=== PATIENT | male | born 1960 | race Caucasian/White ===

== ENCOUNTER 2017-11-17 20:07 | Emergency (ER) | payer OTHER, MEDICAID ==
[~2017-11-17] VITALS: Ht 165.1 cm; Wt 63.5 kg
[2017-11-17 20:10] VITALS: BP 121/70
--- NOTE | 2017-11-17 20:15 | NUR ---
TO LOBBY VIA W/C, A/W BED, LUIS MIGUEL LION NOTED
--- NOTE | 2017-11-17 20:30 | NUR ---
TO ER BED 1
--- NOTE | 2017-11-17 20:35 | NUR ---
57/M BIB CAREGIVER [facility] LEG SWELL[facility] X 1 DAY. PER CAREGIVER, LEG WERE PUPRPLE AT HOME. ON ASSESSMENT, LEG IS PINK AND DRY, +1 PITTING EDEMA TO BLE, +PMSC. DENIES ANY PAIN TO LEG. NO ACUTE RESPIRATORY DISTRESS. PMH: CEREBRAL PALSY, HTN, HYPOTHYROIDISM
[2017-11-17 23:29] LABS: EOSINOPHILS # (AUTO) 0.2 K/uL (0-0.4); EOSINOPHILS % (AUTO) 6.3 % (0.0-4.0); HEMATOCRIT 32.8 % (36-52); HEMOGLOBIN 11.7 g/dL (12.0-18.0); LYMPHOCYTES # (AUTO) 1.5 K/uL (2.0-11.5); LYMPHOCYTES % (AUTO) 41.4 % (20.5-51.1); MEAN CORPUSCULAR HEMOGLOBIN 34 pg (27-31); MEAN CORPUSCULAR HGB CONC 36 g/dL (33-37); MEAN CORPUSCULAR VOLUME 93.9 fL (80-94); MONOCYTES # (AUTO) 0.3 K/uL (0.8-1.0); MONOCYTES % (AUTO) 8.7 % (1.7-9.3); NEUTROPHILS # (AUTO) 1.6 K/uL (1.8-7.7); NEUTROPHILS % (AUTO) 42.6 % (42.2-75.2); PLATELET COUNT (AUTO) 242 K/uL (140-450); RED BLOOD CELL COUNT(AUTO) 3.49 MIL/uL (4.20-6.10); RED CELL DISTRIBUTION WIDTH 13.3 % (11.6-13.7); WHITE BLOOD COUNT (AUTO) 3.7 K/uL (4.8-10.8)
[2017-11-17 23:50] LABS: ANION GAP 8.8 (8-16); CREATININE 0.7 mg/dL (0.7-1.3); POTASSIUM 3.8 mmol/L (3.5-5.1)
[2017-11-17 23:56] LABS: ALBUMIN 3.1 g/dL (3.4-5.0); TOTAL BILIRUBIN 0.3 mg/dL (0.0-1.0)
[2017-11-17] MEDS ORDERED: MULT-405 PO (23:56)
[2017-11-17] MEDS ORDERED: BENA20TA PO (23:56)
[2017-11-17] MEDS ORDERED: INSU100S22 SUBQ (23:56)
[2017-11-17] MEDS ORDERED: MAGN400S60 PO (23:56)
[2017-11-17] MEDS ORDERED: BISA10SU46 RC (23:56)
[2017-11-17] MEDS ORDERED: [UNRECOGNIZED DRUG - CODE] PO (23:56)
[2017-11-17] MEDS ORDERED: [UNRECOGNIZED DRUG - CODE] PO (23:56)
[2017-11-17] MEDS ORDERED: HUM SUBQ (23:56)
[2017-11-17] MEDS ORDERED: HYDR200T5 PO (23:56)
[2017-11-17] MEDS ORDERED: DOCU-299 PO (23:56)
[2017-11-17] MEDS ORDERED: FLEPED RC (23:56)
[2017-11-17] MEDS ORDERED: FINA5TAB1 PO (23:56)
[2017-11-17] MEDS ORDERED: SYN.1 PO (23:56)
[2017-11-17] MEDS ORDERED: GLU1I (23:56)
[2017-11-17] MEDS ORDERED: LEVO0.083 PO (23:56)
[2017-11-17] MEDS ORDERED: TAMS0.4C96 PO (23:56)
[2017-11-17] MEDS ORDERED: ALEN70TA52 PO (23:56)
[2017-11-17] MEDS ORDERED: [UNRECOGNIZED DRUG - CODE] MC (23:56)
[2017-11-17] MEDS ORDERED: ACET-2619 PO (23:56)
[2017-11-17] MEDS ORDERED: [UNRECOGNIZED DRUG - CODE] PO (23:56)
[2017-11-18 00:07] LABS: APPEARANCE,URINE CLEAR (CLEAR); BILIRUBIN,URINE NEGATIVE (NEGATIVE); BLOOD, URINE NEGATIVE (NEGATIVE); COLOR,URINE YELLOW (YELLOW); LEUKOCYTE ESTERASE ,URINE NEGATIVE (NEGATIVE); NITRITE, URINE NEGATIVE (NEGATIVE); UGLUCOSE NEGATIVE (NEGATIVE)
--- NOTE | 2017-11-18 01:09 | NUR ---
Patient discharged with v/s stable. Written and verbal after care instructions given and explained. Patient verbalized understanding. Wheel Chair Assisted with by caregiver. All questions addressed prior to discharge. Advised to follow up with PMD. IV removed, catheter intact and site benign. Applied folded 4x4 gauze and tape to stop bleeding.
[2017-11-18 01:16] VITALS: BP 116/70
== END 2017-11-18 01:09 | disposition home or self-care (01) ==
LOC: MED 20:07
DX: G80.9 Cerebral palsy, unspecified (principal); M79.605 Pain in left leg; M79.604 Pain in right leg; I10 Essential (primary) hypertension; E03.9 Hypothyroidism, unspecified; Z79.4 Long term (current) use of insulin; Z79.899 Other long term (current) drug therapy
CPT/HCPCS: 36415; 71045; 80053; 81003; 82948; 83880; 85025; 93970; 99285; Q0092; 99284

== ENCOUNTER 2018-07-05 13:07 | Inpatient (IN) | payer OTHER, MEDICAID ==
[~2018-07-05] VITALS: Ht 167.6 cm; Wt 87.1 kg
[2018-07-05 13:07] VITALS: BP 122/91
[~2018-07-05 13:07] MED LIST: ACET-2619 PO; ALEN70TA9 PO; BENA20TA PO; BISA10SU46 RC; DOCU-299 PO; FINA5TAB1 PO; FLEPED RC; GLU1I; HUM SUBQ; HYDR200T5 PO; INSU100S22 SUBQ; LEVO0.083 PO; MAGN400S60 PO; MULT-405 PO; SYN.1 PO; TAMS0.4C96 PO; [UNRECOGNIZED DRUG - CODE] MC; [UNRECOGNIZED DRUG - CODE] PO; [UNRECOGNIZED DRUG - CODE] PO; [UNRECOGNIZED DRUG - CODE] PO
--- NOTE | 2018-07-05 13:07 | NUR ---
Patient BIBA ACLS, transferred to bed 5. RN evaluating patient at bedside.
--- NOTE | 2018-07-05 13:40 | NUR ---
pt c/o generalized weakness worsening over 3 days. Pt is wheelchair bound at baseline due to cerebral palsy. Was recently put on lasix for increased fluid retention. a/ox4 . muscle strength equal bilaterally upper and lower extremites. lungs congested at bases bilat, 93% on RA. +wet cough noted. hx---CP, DM, HTN, hypothyroidism
[2018-07-05] MEDS ORDERED: NACL 0.9% 1,000 ML IV SCH (14:04)
[2018-07-05] MEDS ORDERED: LEVOFLOXACIN 500 MG/D5W PREMIX 100 ML IV ONE (14:05)
[2018-07-05] MEDS ORDERED: ALBUTEROL SULFATE/IPRATROPIU 3 ML SOL IH ONE (14:05)
[2018-07-05] MEDS ORDERED: MAG SULF 2000 MG/WATER PREMIX 50 ML IV ONE (14:05)
[2018-07-05] MEDS ORDERED: methylPREDNISolone SS 125 MG/2 ML VIAL IVP ONE (14:05)
--- NOTE | 2018-07-05 14:17 | NUR ---
XRAY AT BEDSIDE
[2018-07-05 14:49] LABS: BASOPHILS % (AUTO) 0.2 % (0.0-2.0); EOSINOPHILS # (AUTO) 0.1 K/uL (0-0.4); EOSINOPHILS % (AUTO) 1.8 % (0.0-4.0); HEMATOCRIT 26.4 % (36-52); HEMOGLOBIN 9.1 g/dL (12.0-18.0); LYMPHOCYTES # (AUTO) 0.6 K/uL (2.0-11.5); LYMPHOCYTES % (AUTO) 11.3 % (20.5-51.1); MEAN CORPUSCULAR HEMOGLOBIN 34 pg (27-31); MEAN CORPUSCULAR HGB CONC 34 g/dL (33-37); MEAN CORPUSCULAR VOLUME 98.1 fL (80-94); MONOCYTES # (AUTO) 0.3 K/uL (0.8-1.0); NEUTROPHILS # (AUTO) 3.9 K/uL (1.8-7.7); NEUTROPHILS % (AUTO) 79.7 % (42.2-75.2); PLATELET COUNT (AUTO) 352 K/uL (140-450); RED BLOOD CELL COUNT(AUTO) 2.69 MIL/uL (4.20-6.10); RED CELL DISTRIBUTION WIDTH 13.5 % (11.6-13.7); WHITE BLOOD COUNT (AUTO) 4.9 K/uL (4.8-10.8)
--- NOTE | 2018-07-05 14:51 | NUR ---
ADMINISTERED HHN THERAPY AND RESPIRATORY DRUG ORDERED
[2018-07-05 15:14] LABS: ANION GAP 11.8 (8-16); CARBON DIOXIDE 29.1 mmol/L (21-32); CREATININE 1.1 mg/dL (0.7-1.3); POTASSIUM 3.9 mmol/L (3.5-5.1)
[2018-07-05 15:19] LABS: PROTHROMBIN TIME 9.2 secs (10.8-13.4)
[2018-07-05 15:28] LABS: ALBUMIN 2.3 g/dL (3.4-5.0); TOTAL BILIRUBIN 0.3 mg/dL (0.0-1.0)
[2018-07-05] MEDS ORDERED: ATOR10TA51 PO (17:48)
[2018-07-05] MEDS ORDERED: ASPI-1718 PO (17:48)
[2018-07-05] MEDS ORDERED: [UNRECOGNIZED DRUG - CODE] PO (17:48)
[2018-07-05] MEDS ORDERED: [UNRECOGNIZED DRUG - CODE] PO (17:48)
[2018-07-05 18:21] LABS: APPEARANCE,URINE CLEAR (CLEAR); BILIRUBIN,URINE NEGATIVE (NEGATIVE); BLOOD, URINE NEGATIVE (NEGATIVE); COLOR,URINE YELLOW (YELLOW); LEUKOCYTE ESTERASE ,URINE NEGATIVE (NEGATIVE); NITRITE, URINE NEGATIVE (NEGATIVE); PH,URINE 6.5 (5.0-9.0); UGLUCOSE NEGATIVE (NEGATIVE)
--- NOTE | 2018-07-05 19:20 | NUR ---
Katia amado in [facility] - 07/05/18 at 1921 by SERA REPORT RECKEZIA FROM SAMANTA RN
--- NOTE | 2018-07-05 19:21 | NUR ---
REPORT REC'D FROM ESMS RN
[2018-07-05] MEDS ORDERED: ALBUTEROL 0.083% 2.5 MG/3 ML NEBU INH PRN (19:25)
[2018-07-05] MEDS ORDERED: ACETAMINOPHEN 325 MG TAB PO PRN (19:25)
[2018-07-05] MEDS ORDERED: DEXTROSE 50% 50 ML SYR IVP PRN (19:25)
[2018-07-05] MEDS ORDERED: ONDANSETRON 4 MG/2 ML VIAL IVP PRN (19:25)
[2018-07-05 20:40] VITALS: BP 113/69
--- NOTE | 2018-07-05 20:40 | NUR ---
RECEIVED PT FROM ER NURSE. PT ON 2LPM O2 VIA NC. NO SOB OR ANY RESPIRATORY DISTRESS NOTED WITH NC. SKIN INTACT, WARM AND DRY. IV SITE ON LEFT HAND 20G. SL. DX PNA. ORIENT ROOM TO PT. BED IN LOW POSITION. CALL LIGHT WITHIN REACH. WILL CONTINUE TO MONITOR.
--- NOTE | 2018-07-05 20:45 | NUR ---
Patient will be admitted to care of DR. LOPEZ. Admited to [facility]. Will go to room 121 B Belongings list completed. Report to JACQUELINE BRADSHAW
--- NOTE | 2018-07-05 21:30 | NUR ---
INSERT NOEL CATHETER. URINE DRAIN WELL. PT TOLERATED WELL. WILL CONTINUE TO MONITOR.
[2018-07-05] MEDS: HYDROXYCHLOROQUINE 200 MG TAB PO SCH (21:45)
[2018-07-05] MEDS: PIPERACILLIN/TAZOBACTAM 2.25 GM in DEXTROSE 5% 50 ML IV SCH (21:45)
[2018-07-05] MEDS ORDERED: PIPERACILLIN/TAZOBACTAM 2.25 GM VIAL IV ONE (21:46)
[2018-07-05] MEDS: BLOOD GLUCOSE MONITORING 1 DEV DEV FS SCH (21:50)
[2018-07-05] MEDS: INSULIN LISPRO SLIDING SCALE 100 UNITS/ML VIAL SUBQ PRN (22:24)
[2018-07-06] VITALS: BP 127/81
--- NOTE | 2018-07-06 00:02 | NUR ---
VS CHECKED. WITHIN NORMAL RANGE. PT IN STABLE CONDITION. WILL CONTINUE TO MONITOR.
--- NOTE | 2018-07-06 02:10 | NUR ---
PT SLEEPING. NO S/S ANY DISCOMFORT. CALL LIGHT WITHIN REACH.
[2018-07-06] MEDS: ALBUTEROL 0.083% 2.5 MG/3 ML NEBU INH SCH ×4 (02:15→19:49)
[2018-07-06 04:00] VITALS: BP 97/57
--- NOTE | 2018-07-06 04:35 | NUR ---
PT SLEEPING COMFORTABLY. NO S/S SOB OR ANY KIND RESPIRATORY DISTRESS NOTED. WILL CONTINUE TO MONITOR.
[2018-07-06] MEDS: BLOOD GLUCOSE MONITORING 1 DEV DEV FS SCH ×4 (05:41→21:10)
[2018-07-06] MEDS ORDERED: PIPERACILLIN/TAZOBACTAM 2.25 GM VIAL IV ONE (05:44)
[2018-07-06] MEDS: INSULIN LISPRO SLIDING SCALE 100 UNITS/ML VIAL SUBQ PRN ×4 (05:45→21:25)
--- NOTE | 2018-07-06 05:45 | NUR ---
GIVEN ZOSIN, BS CHECKED, 254. INSULIN COVERAGE NEEDED. GIVEN INSULIN. PT TOLERATED WELL.
[2018-07-06] MEDS: PIPERACILLIN/TAZOBACTAM 2.25 GM in DEXTROSE 5% 50 ML IV SCH ×3 (05:49→21:11)
[2018-07-06] MEDS: LEVOTHYROXINE 0.088 MG TAB PO SCH (06:30)
--- NOTE | 2018-07-06 06:55 | NUR ---
SYNTHROID IS NOT AVAILABLE IN FLOOR. NOT GIVEN.
--- NOTE | 2018-07-06 07:16 | NUR ---
ENDORSED PT TO DAY SHIFT NURSE. PT IN STABLE CONDITION.
--- NOTE | 2018-07-06 07:17 | NUR ---
RECEIVED BEDSIDE REPORT FROM MANAGER BUSINESS NURSE. PATIENT ON TELE MONITOR AND STANDARD PRECAUTIONS IN PLACE. PATIENT AAOX4 AND ON 2 L O2 NC, NO DISTRESS NOTED. PATIENT BEDREST AND SKIN INTACT, +3 PITTING EDEMA ON B/L FEET. NOEL CATHETER IN PLACE, INSERTED 07/06/18, SECURE AND IN PLACE. FALL RISK PROTOCOL IN PLACE. BED IN LOW POSITION, CALL LIGHT WITHIN REACH, SIDE RAILS X2 UP Addendum: 07/06/18 at 0904 by Nydia Erazo RN NOEL CATHETER INSERTED 07/05/18
[2018-07-06 08:00] VITALS: BP 112/64
--- NOTE | 2018-07-06 08:37 | NUR ---
PATIENT HAS BEEN SCREENED AND CATEGORIZED MODERATE NUTRITION RISK. PATIENT WILL BE SEEN WITHIN 3-5 DAYS OF ADMISSION. 07/08/18-07/10/[address]
[2018-07-06] MEDS: TAMSULOSIN 0.4 MG CAP PO SCH (08:55)
[2018-07-06] MEDS: ATORVASTATIN 20 MG TAB PO SCH (08:56)
[2018-07-06] MEDS: ASPIRIN 81 MG TAB.CHEW PO SCH (08:56)
[2018-07-06] MEDS: BENAZEPRIL 10 MG TAB PO SCH (08:57)
[2018-07-06] MEDS: HYDROXYCHLOROQUINE 200 MG TAB PO SCH ×2 (08:58→21:11)
[2018-07-06] MEDS: FINASTERIDE 5 MG TAB PO SCH (08:58)
[2018-07-06] MEDS ORDERED: ENOXAPARIN 40 MG/0.4 ML SYR SUBQ SCH (09:00)
--- NOTE | 2018-07-06 09:01 | NUR ---
ADMINISTERED SCHEDULED MEDS. PATIENT TOLERATED WELL
[2018-07-06 09:15] LABS: BASOPHILS % (AUTO) 0.2 % (0.0-2.0); HEMATOCRIT 23.9 % (36-52); HEMOGLOBIN 8.4 g/dL (12.0-18.0); LYMPHOCYTES # (AUTO) 0.7 K/uL (2.0-11.5); LYMPHOCYTES % (AUTO) 11.2 % (20.5-51.1); MEAN CORPUSCULAR HEMOGLOBIN 34 pg (27-31); MEAN CORPUSCULAR HGB CONC 35 g/dL (33-37); MEAN CORPUSCULAR VOLUME 98.1 fL (80-94); MONOCYTES # (AUTO) 0.3 K/uL (0.8-1.0); MONOCYTES % (AUTO) 5.2 % (1.7-9.3); NEUTROPHILS # (AUTO) 5.5 K/uL (1.8-7.7); NEUTROPHILS % (AUTO) 83.4 % (42.2-75.2); PLATELET COUNT (AUTO) 392 K/uL (140-450); RED BLOOD CELL COUNT(AUTO) 2.43 MIL/uL (4.20-6.10); RED CELL DISTRIBUTION WIDTH 13.5 % (11.6-13.7); WHITE BLOOD COUNT (AUTO) 6.6 K/uL (4.8-10.8)
[2018-07-06] MEDS: INSULIN LANTUS 100 UNITS/ML 10 ML VIAL SUBQ SCH (09:20)
[2018-07-06 09:42] LABS: ALBUMIN 1.8 g/dL (3.4-5.0); ANION GAP 15.5 (8-16); CARBON DIOXIDE 22.2 mmol/L (21-32); CREATININE 1.1 mg/dL (0.7-1.3); POTASSIUM 3.7 mmol/L (3.5-5.1); TOTAL BILIRUBIN 0.2 mg/dL (0.0-1.0)
--- NOTE | 2018-07-06 10:25 | NUR ---
DR. MARSH AT BEDSIDE SPEAKING TO PATIENT
--- NOTE | 2018-07-06 11:49 | NUR ---
ADMINISTERED INSULIN PER SLIDING SCALE. PATIENT TOLERATED WELL
[2018-07-06 12:00] VITALS: BP 106/62
--- NOTE | 2018-07-06 13:58 | NUR ---
FAMILY AT BEDSIDE, ON 2 L O2 NC, NO DISTRESS NOTED
[2018-07-06 16:00] VITALS: BP 107/60
--- NOTE | 2018-07-06 16:30 | NUR ---
PATIENT WATCHING TV, ON 2L O2 NC, NO DISTRESS NOTED
[2018-07-06] MEDS: FUROSEMIDE 40 MG/4 ML VIAL IVP SCH (16:36)
--- NOTE | 2018-07-06 19:20 | NUR ---
BEDSIDE REPORT GIVEN TO AUGUSTINE NELSON. PATIENT ENDORSED IN STABLE CONDITION
--- NOTE | 2018-07-06 19:25 | NUR ---
RECEIVED BEDSIDE REPORT FROM DAY SHIFT RNMILAD. PATIENT IN STABLE CONDITION, NO SIGNS OF DISTRESS ON 2L O2 VIA NC, SITTING UP IN BED, SAFETY PRECAUTIONS IN PLACE.
[2018-07-06 20:00] VITALS: BP 103/55
--- NOTE | 2018-07-06 21:28 | NUR ---
ADMINISTERED SCHEDULED MEDICATIONS. PATIENT TOLERATED WELL. REPOSITIONED PATIENT FOR COMFORT. SAFETY PRECAUTIONS IN PLACE. WILL CONTINUE TO MONITOR.
--- NOTE | 2018-07-06 23:15 | NUR ---
PATIENT SLEEPING, NO SIGNS OF DISTRESS ON 2L O2 NC. SAFETY PRECAUTIONS IN PLACE.
[2018-07-07 00:27] VITALS: BP 112/62
--- NOTE | 2018-07-07 01:30 | NUR ---
PATIENT WOKE UP TO USE BEDPAN, CLEANED AND REPOSITIONED PATIENT FOR COMFORT, PATIENT WANTS TO GO BACK TO SLEEP.
[2018-07-07 04:00] VITALS: BP 108/53
--- NOTE | 2018-07-07 04:10 | NUR ---
REPOSITIONED PATIENT FOR COMFORT, VITALS STABLE, NO SIGNS OF DISTRESS ON2L O2 NC, SAFETY PRECAUTIONS IN PLACE.
[2018-07-07] MEDS: PIPERACILLIN/TAZOBACTAM 2.25 GM in DEXTROSE 5% 50 ML IV SCH (06:02)
[2018-07-07] MEDS: LEVOTHYROXINE 0.088 MG TAB PO SCH (06:25)
[2018-07-07] MEDS: BLOOD GLUCOSE MONITORING 1 DEV DEV FS SCH ×4 (06:31→20:47)
--- NOTE | 2018-07-07 07:10 | NUR ---
RECEIVED REPORT FROM NUT SORTER OPERATOR NURSE LESLIE FOR CONTINUITY OF CARE. PT IN STABLE CONDITION. RESPIRATIONS EVEN AND UNLABORED. IV INTACT AND PATENT. SAFETY MEASURES IN PLACE. BED IN LOW POSITION. BED ALARM ON. CALL LIGHT AT BEDSIDE. WILL CONTINUE TO MONITOR.
[2018-07-07 07:36] LABS: BASOPHILS % (AUTO) 0.2 % (0.0-2.0); EOSINOPHILS % (AUTO) 0.8 % (0.0-4.0); HEMATOCRIT 20.8 % (36-52); HEMOGLOBIN 7.5 g/dL (12.0-18.0); LYMPHOCYTES % (AUTO) 18.4 % (20.5-51.1); MEAN CORPUSCULAR HEMOGLOBIN 35 pg (27-31); MEAN CORPUSCULAR HGB CONC 36 g/dL (33-37); MEAN CORPUSCULAR VOLUME 97.2 fL (80-94); MONOCYTES # (AUTO) 0.4 K/uL (0.8-1.0); MONOCYTES % (AUTO) 6.8 % (1.7-9.3); NEUTROPHILS % (AUTO) 73.8 % (42.2-75.2); PLATELET COUNT (AUTO) 406 K/uL (140-450); RED BLOOD CELL COUNT(AUTO) 2.14 MIL/uL (4.20-6.10); RED CELL DISTRIBUTION WIDTH 13.6 % (11.6-13.7); WHITE BLOOD COUNT (AUTO) 5.4 K/uL (4.8-10.8)
[2018-07-07] MEDS: ALBUTEROL 0.083% 2.5 MG/3 ML NEBU INH SCH ×3 (07:49→19:22)
[2018-07-07 08:00] VITALS: BP 120/61
[2018-07-07 08:48] LABS: ALBUMIN 1.7 g/dL (3.4-5.0); ANION GAP 10.4 (8-16); CARBON DIOXIDE 27.9 mmol/L (21-32); CREATININE 1.3 mg/dL (0.7-1.3); POTASSIUM 3.3 mmol/L (3.5-5.1); TOTAL BILIRUBIN 0.2 mg/dL (0.0-1.0)
[2018-07-07] MEDS: FINASTERIDE 5 MG TAB PO SCH (09:48)
[2018-07-07] MEDS: ASPIRIN 81 MG TAB.CHEW PO SCH (09:48)
[2018-07-07] MEDS: POTASSIUM CHLORIDE 10 MEQ TABER PO SCH (09:48)
[2018-07-07] MEDS: ATORVASTATIN 20 MG TAB PO SCH (09:49)
[2018-07-07] MEDS: BENAZEPRIL 10 MG TAB PO SCH (09:49)
[2018-07-07] MEDS: HYDROXYCHLOROQUINE 200 MG TAB PO SCH ×2 (09:49→20:39)
[2018-07-07] MEDS: TAMSULOSIN 0.4 MG CAP PO SCH (09:49)
[2018-07-07] MEDS: FUROSEMIDE 40 MG/4 ML VIAL IVP SCH ×2 (09:58→16:38)
[2018-07-07] MEDS: INSULIN LANTUS 100 UNITS/ML 10 ML VIAL SUBQ SCH (09:59)
--- NOTE | 2018-07-07 10:01 | NUR ---
LOVENOX DISCONTINUED NOT GIVEN AT THIS TIME. PT IN STABLE CONDITION.
--- NOTE | 2018-07-07 10:02 | NUR ---
REPOSITIONED AND CHANGED AT THIS TIME. PT IN STABLE CONDITION. AAOX4. BED IN LOW POSITION. CALL LIGHT AT BEDSIDE. BED ALARM ON.
[2018-07-07 12:00] VITALS: BP 110/60
[2018-07-07] MEDS: INSULIN LISPRO SLIDING SCALE 100 UNITS/ML VIAL SUBQ PRN ×3 (12:30→20:47)
[2018-07-07] MEDS: PIPER/TAZO 2.25GM/D5W PREMIX 50 ML IV SCH ×2 (13:53→20:39)
--- NOTE | 2018-07-07 13:58 | NUR ---
ASSISTED WITH ORAL CARE AT THIS TIME. PT TOLERATED WELL. RESPIRATIONS EVEN AND UNLABORED. WILL CONTINUE TO MONITOR. BED IN LOW POSITION. CALL LIGHT AT BEDSIDE. BED ALARM ON.
--- NOTE | 2018-07-07 15:09 | NUR ---
PT LYING IN BED WITH FAMILY AT BEDSIDE. RESPIRATIONS EVEN AND UNLABORED. BED IN LOW POSITION. CALL LIGHT AT BEDSIDE. BED ALARM ON. WILL CONTINUE TO MONITOR.
[2018-07-07 16:00] VITALS: BP 103/55
--- NOTE | 2018-07-07 19:29 | NUR ---
GAVE REPORT TO BANK APPRAISER NURSE DIEGO FOR CONTINUITY OF CARE. PT IN STABLE CONDITION.
--- NOTE | 2018-07-07 19:30 | NUR ---
RECEIVED PT ON BED, AAOX4, HX OF CEREBRAL PALSY, ABLE TO MAKE NEEDS KNOWN, VITAL SIGNS STABLE, SAT-95% ON O2 2L NC, DENIES ANY PAIN, NO SOB NOTED, OCCASIONAL COUGH NOTED, WITH IRENE LOWER LEG PITTING EDEMA, SCROTAL EDEMA AND REDNESS NOTED, NEOL CATHETER IN PLACE WITH PALE YELLOW OUTPUT, PLAN OF CARE DISCUSSED, SAFETY MEASURES IN PLACE, CALL LIGHT WITHIN REACH.
[2018-07-07 20:00] VITALS: BP 110/69
--- NOTE | 2018-07-07 20:50 | NUR ---
BLOOD SUGAR CHECKED WITH 200 RESULT, COVERAGE GIVEN, ASSISTED WITH SNACK, TOLERATED WELL, DUE MEDS ADMINISTERED, REPOSITIONED BY TAX RECORD CLERK AND OFFLOAD PRESSURE AREAS, MONITORED CLOSELY.
--- NOTE | 2018-07-07 23:45 | NUR ---
PT SLEEPING, OPEN EYES TO TOUCH, VITAL SIGNS STABLE, DENIES ANY PAIN, NO SIGNS OF RESP DISTRESS, CONTINUE TO MONITOR CLOSELY.
[2018-07-08] VITALS: BP 115/64
[2018-07-08] MEDS: ALBUTEROL 0.083% 2.5 MG/3 ML NEBU INH SCH ×4 (01:11→19:09)
--- NOTE | 2018-07-08 03:47 | NUR ---
PT SLEEPING, EASILY AROUSABLE, VITAL SIGNS STABLE, DENIES PAIN, NO SOB NOTED, MONITORED CLOSELY.
[2018-07-08 04:00] VITALS: BP 113/65
[2018-07-08] MEDS: PIPER/TAZO 2.25GM/D5W PREMIX 50 ML IV SCH ×3 (04:24→20:03)
[2018-07-08] MEDS: LEVOTHYROXINE 0.088 MG TAB PO SCH (05:53)
--- NOTE | 2018-07-08 06:10 | NUR ---
BLOOD SUGAR CHECKED WITH 146 RESULT, NO COVERAGE NEEDED, DUE PO MEDICATION TAKEN, NO SOB NOTED, MONITORED CLOSELY.
[2018-07-08] MEDS: BLOOD GLUCOSE MONITORING 1 DEV DEV FS SCH ×4 (06:54→19:55)
--- NOTE | 2018-07-08 07:21 | NUR ---
PT AWAKE WATCHING TV, NO DISTRESS NOTED, REPORT GIVEN TO AUGUSTINE JUAN FOR CONTINUITY OF CARE.
--- NOTE | 2018-07-08 07:21 | NUR ---
RECEIVED REPORT FROM ELDER ASSISTANT NURSE DIEGO FOR CONTINUITY OF CARE. PT IN STABLE CONDITION. RESPIRATIONS EVEN AND UNLABORED. O2 2L VIA NC INTACT AND PATENT. IV INTACT AND PATENT. SAFETY MEASURES IN PLACE. BED IN LOW POSITION. BED ALARM ON. CALL LIGHT AT BEDSIDE. WILL CONTINUE TO MONITOR.
[2018-07-08 08:00] VITALS: BP 109/60
--- NOTE | 2018-07-08 09:05 | NUR ---
ASSISTED WITH REPOSITIONING AND CHANGING. PT TOLERATED WELL. BED IN LOW POSITION. BED ALARM ON. CALL LIGHT AT BEDSIDE. WILL CONTINUE TO MONITOR.
[2018-07-08] MEDS: FINASTERIDE 5 MG TAB PO SCH (09:20)
[2018-07-08] MEDS: POTASSIUM CHLORIDE 10 MEQ TABER PO SCH (09:20)
[2018-07-08] MEDS: ATORVASTATIN 20 MG TAB PO SCH (09:20)
[2018-07-08] MEDS: BENAZEPRIL 10 MG TAB PO SCH (09:20)
[2018-07-08] MEDS: FUROSEMIDE 40 MG/4 ML VIAL IVP SCH ×2 (09:20→17:25)
[2018-07-08] MEDS: TAMSULOSIN 0.4 MG CAP PO SCH (09:21)
[2018-07-08] MEDS: HYDROXYCHLOROQUINE 200 MG TAB PO SCH ×2 (09:21→20:04)
--- NOTE | 2018-07-08 10:05 | NUR ---
WENT IN TO TITRATE PT DOWN ON O2. PLACED PT ON ROOM AIR & PT BEGAN TO DESATURATE DOWN TO 86%. PLACED PT ON 1L O2, PT STILL SATING AT 88-89%. PLACE PT BACK ON 2L N.C. WILL CONTINUE TO MONITOR AND WILL ATTEMPT TO TITRATE 02 AGAIN AFTER NEXT TX
[2018-07-08] MEDS: INSULIN LANTUS 100 UNITS/ML 10 ML VIAL SUBQ SCH (10:21)
[2018-07-08 12:00] VITALS: BP 112/72
[2018-07-08] MEDS ORDERED: MAGNESIUM HYDROXIDE 2400 MG/30 ML UDC PO PRN (12:25)
--- NOTE | 2018-07-08 12:30 | NUR ---
VERBAL ORDER NASRIN FRANCISCO M.D. FOR SACRAL REDNESS.
[2018-07-08] MEDS ORDERED: MAGNESIUM HYDROXIDE 2400 MG/30 ML UDC PO SCH (13:00)
--- NOTE | 2018-07-08 13:10 | NUR ---
PT LYING IN BED WITH FAMILY (SISTER MARISA) AT BEDSIDE. PT IN STABLE CONDITION. WILL CONTINUE TO MONITOR. BED IN LOW POSITION. CALL LIGHT BY BEDSIDE.
[2018-07-08] MEDS: INSULIN LISPRO SLIDING SCALE 100 UNITS/ML VIAL SUBQ PRN ×3 (13:57→20:22)
[2018-07-08 16:00] VITALS: BP 116/62
[2018-07-08] MEDS ORDERED: HYDRAGUARD CREAM TP PRN (17:10)
--- NOTE | 2018-07-08 17:30 | NUR ---
PT NATIONAL BUSINESS DIRECTOR DIEUDONNE . DIEUDONNE HAS NEW PLACEMENT FOR PT WHEN DISCHARGED. WILL ENDORSE.
--- NOTE | 2018-07-08 17:31 | NUR ---
GAVE ORDERED DUE MEDICATIONS AT THIS TIME. PT TOLERATED WELL. BED IN LOW POSITION. BED ALARM ON. CALL LIGHT AT BEDSIDE. WILL CONTINUE TO MONITOR.
--- NOTE | 2018-07-08 19:13 | NUR ---
GAVE REPORT TO BRUSH MACHINE SETTER NURSE MILI FOR CONTINUITY OF CARE. PT IN STABLE CONDITION.
--- NOTE | 2018-07-08 19:15 | NUR ---
RECEIVED BEDSIDE REPORT FROM YESSICA BRADSHAW. PT IS AAO X4. BEDBOUND. ON ROOM AIR. RESPIRATIONS ARE EQUAL AND UNLABORED. IV ON L HAND 20G SL ON IV ANTIBIOTICS. SKIN INTACT PER NURSE HAS REDNESS ON SACRAL HYDRAGUARD ORDERED. PT IS COMING FROM [facility] 07/07. PLAN OF CARE DISCUSSED WITH PT. SAFETY MEASURES ARE IN PLACE. WILL CONTINUE TO MONITOR.
--- NOTE | 2018-07-08 20:03 | NUR ---
SCHEDULED MEDICATIONS WERE GIVEN. PT TOLERATED WELL. BLOOD GLUCOSE 191 2 UNITS GIVEN. ALL NEED MET AT THIS TIME. WILL CONTINUE TO MONITOR.
[2018-07-09] VITALS: BP 103/65
--- NOTE | 2018-07-09 00:35 | NUR ---
VITAL SIGNS ARE WITHIN NORMAL LIMITS. ASSISTED PATIENT WITH ORAL CARE. REPOSITION PT FOR COMFORT. WILL CONTINUE TO MONITOR.CALL LIGHT WITHIN REACH.
[2018-07-09] MEDS: ALBUTEROL 0.083% 2.5 MG/3 ML NEBU INH SCH ×4 (00:55→20:29)
--- NOTE | 2018-07-09 02:21 | NUR ---
PT IS SLEEPING. NO S/S OF DISTRESS. WILL CONTINUE TO MONITOR.
--- NOTE | 2018-07-09 05:19 | NUR ---
BLOOD GLUCOSE IS 31 PT IS VERBAL AND NON CLAMMY. DEXTROSE ADMINISTERED PER ORDERS AND ORANGE JUICE WITH SUGAR GIVEN WILL RECHECK BLOOD SUGAR.
[2018-07-09] MEDS: LEVOTHYROXINE 0.088 MG TAB PO SCH (05:34)
[2018-07-09] MEDS: PIPER/TAZO 2.25GM/D5W PREMIX 50 ML IV SCH ×2 (05:35→12:13)
[2018-07-09] MEDS: BLOOD GLUCOSE MONITORING 1 DEV DEV FS SCH ×4 (05:38→19:46)
--- NOTE | 2018-07-09 05:40 | NUR ---
RECHECKED BLOOD SUGAR IS 119. PT IN NO DISTRESS. ALL SAFETY MEASURES ARE IN PLACE. SNACK AT BEDSIDE. GAVE PATIENT ANOTHER ORANGE JUICE. CALL LIGHT WITHIN REACH. WILL CONTINUE TO MONITOR.
[2018-07-09 06:00] LABS: BASOPHILS % (AUTO) 0.6 % (0.0-2.0); EOSINOPHILS # (AUTO) 0.2 K/uL (0-0.4); EOSINOPHILS % (AUTO) 3.2 % (0.0-4.0); HEMATOCRIT 21.7 % (36-52); HEMOGLOBIN 7.5 g/dL (12.0-18.0); LYMPHOCYTES # (AUTO) 1.5 K/uL (2.0-11.5); LYMPHOCYTES % (AUTO) 26.5 % (20.5-51.1); MEAN CORPUSCULAR HEMOGLOBIN 34 pg (27-31); MEAN CORPUSCULAR HGB CONC 35 g/dL (33-37); MEAN CORPUSCULAR VOLUME 97.4 fL (80-94); MONOCYTES # (AUTO) 0.6 K/uL (0.8-1.0); MONOCYTES % (AUTO) 9.9 % (1.7-9.3); NEUTROPHILS # (AUTO) 3.4 K/uL (1.8-7.7); NEUTROPHILS % (AUTO) 59.8 % (42.2-75.2); PLATELET COUNT (AUTO) 431 K/uL (140-450); RED BLOOD CELL COUNT(AUTO) 2.23 MIL/uL (4.20-6.10); RED CELL DISTRIBUTION WIDTH 13.8 % (11.6-13.7); WHITE BLOOD COUNT (AUTO) 5.6 K/uL (4.8-10.8)
[2018-07-09 06:41] LABS: ANION GAP 11.3 (8-16); CARBON DIOXIDE 31.5 mmol/L (21-32); CREATININE 1.7 mg/dL (0.7-1.3); POTASSIUM 3.8 mmol/L (3.5-5.1); TOTAL BILIRUBIN 0.2 mg/dL (0.0-1.0)
--- NOTE | 2018-07-09 07:37 | NUR ---
Report received from night nurse Juanpablo Granger awake a/o appropriate for age and able to communicate needs. Continues to have edema to ble and scrotum, fc remains inplace, draining well. Pt denies sob, denies pain at this time. No s/s of acute distress noted at this time, Call light and safety precautions in place, personal items within reach, will continue to monitor.
--- NOTE | 2018-07-09 07:37 | NUR ---
GAVE BEDSIDE REPORT TO DAY SHIFT RN. PT ENDORSED IN STABLE CONDITION.
[2018-07-09 08:00] VITALS: BP 129/72
--- NOTE | 2018-07-09 10:00 | NUR ---
Pt remains awake a/o and able to communicate needs, doing crossword puzzle and listening to talk radio. Pt educated on repositioning, shifting body weight regularly and the prevention of pressure injuries, verbalized understanding. Pt denies sob, pain at this time. No s/s of acute distress noted. Call light and safety precautions in place, personal items within reach, will continue to monitor
[2018-07-09] MEDS: TAMSULOSIN 0.4 MG CAP PO SCH (10:03)
[2018-07-09] MEDS: FUROSEMIDE 40 MG/4 ML VIAL IVP SCH (10:04)
[2018-07-09] MEDS: HYDROXYCHLOROQUINE 200 MG TAB PO SCH ×2 (10:05→20:00)
[2018-07-09] MEDS: BENAZEPRIL 10 MG TAB PO SCH (10:05)
[2018-07-09] MEDS: POTASSIUM CHLORIDE 10 MEQ TABER PO SCH (10:05)
[2018-07-09] MEDS: ATORVASTATIN 20 MG TAB PO SCH (10:05)
[2018-07-09] MEDS: FINASTERIDE 5 MG TAB PO SCH (10:05)
[2018-07-09] MEDS: INSULIN LANTUS 100 UNITS/ML 10 ML VIAL SUBQ SCH (10:10)
--- NOTE | 2018-07-09 12:00 | NUR ---
Pt remains awake a/o and able to communicate needs, family at bedside. Pt denies sob, pain at this time, noted to have intermittent unproductive cough. Call light and safety precautions in place, personal items within reach, will continue to monitor
[2018-07-09] MEDS: INSULIN LISPRO SLIDING SCALE 100 UNITS/ML VIAL SUBQ PRN (12:19)
[2018-07-09] MEDS ORDERED: ALBUMIN HUMAN 25% 100 ML IV SCH (13:00)
--- NOTE | 2018-07-09 14:00 | NUR ---
Pt family at bedside, Pt remains awake a/o and able to communicate needs, Pt educated on repositioning. Pt denies sob, pain at this time. No s/s of acute distress noted. Call light and safety precautions in place, personal items within easy reach, will continue to monitor.
--- NOTE | 2018-07-09 14:37 | NUR ---
PER PT'S SISTER, PT'S [facility] NON DESTRUCTIVE TESTING TECHNICIAN DIEUDONNE DALAL WILL ARRANGE SNF PLACEMENT UPON DISCHARGE, PT WILL NOT RETURN TO [facility]. DIEUDONNE DALAL [phone], FAX [phone]
--- NOTE | 2018-07-09 15:56 | NUR ---
07/09/18 RD INITIAL ASSESSMENT COMPLETED PLEASE REFER TO NUTRITION ASSESSMENT UNDER CARE ACTIVITY FOR ESTIMATED NUTRITIONAL NEEDS. 1. CONTINUE CCHO 2G NA DIET TOLERATED 2. EDUCATION ON TLC DIET WAS PROVIDED 3. RD TO FOLLOW-UP 3-5 DAYS, MODERATE RISK UYEN CRAIG RD
[2018-07-09 16:00] VITALS: BP 121/65
--- NOTE | 2018-07-09 16:00 | NUR ---
Pt remains awake a/o and able to communicate needs, assisted Pt to place phone call to sister. Pt comfortable at this time, denies sob, pain at this time. No s/s of acute distress noted. Call light and safety precautions in place, personal items within reach, will continue to monitor.
--- NOTE | 2018-07-09 18:45 | NUR ---
Pt assisted onto bedpan,states he feels the urge to make a bowel movement, denies sob or pain at this time. Instructed to use the call light to notify nursing when complete. Safety precautions in place, call light and personal items within reach.
--- NOTE | 2018-07-09 19:18 | NUR ---
Report given to night nurse Bárbara, Pt remained awake a/o appropriate for age throughout shift and able to communicate needs. Pt continues to have edema to ble and scrotum, fc remains in place w good output. Pt denies sob, denies pain at this time. No s/s of acute distress noted. Call light and safety precautions in place, personal items within reach.
--- NOTE | 2018-07-09 19:19 | NUR ---
RECEIVED BEDSIDE REPORT FROM AMANDA RN. PT IS AAO X4. BEDBOUND. ON ROOM AIR. RESPIRATIONS ARE EQUAL AND UNLABORED. IV ON L HAND 20G TKO ON IV ANTIBIOTICS. SKIN INTACT PER NURSE HAS REDNESS ON SACRAL HYDRAGUARD ORDERED. PT IS COMING FROM [facility]. [facility] 07/07. PLAN OF CARE DISCUSSED WITH PT. PT AWAITING FOR SNF PLACEMENT. SAFETY MEASURES ARE IN PLACE. WILL CONTINUE TO MONITOR.
--- NOTE | 2018-07-09 20:00 | NUR ---
SCHEDULED MEDICATION GIVEN. PATIENT TOLERATED WELL. BLOOD GLUCOSE 122 NO COVERAGE NEEDED. ALL NEEDS MET AT THIS TIME. CALL LIGHT WITHIN REACH.
--- NOTE | 2018-07-09 20:38 | NUR ---
RECEIVED PATIENT ON ROOM AIR, PULSE OX SAT 95%. SCHEDULED BREATHING TREATMENT ADMINISTERED. TOLERATED TX WELL WITHOUT ADVERSE SIDE EFFECTS. NO RESPIRATORY DISTRESS NOTED. WILL CONTINUE TO MONITOR.
--- NOTE | 2018-07-09 22:00 | NUR ---
PATIENT WAS CLEANED AND REPOSITION FOR COMFORT. DENIES ANY PAIN. PT RESTING COMFORTABLY IN BED. NO S/S OF DISTRESS. SAFETY MEASURES ARE IN PLACE. CALL LIGHT WITHIN REACH.
[2018-07-09 23:28] VITALS: BP 120/67
--- NOTE | 2018-07-09 23:30 | NUR ---
VITAL SIGNS ARE WITHIN NORMAL LIMITS. ALL SAFETY MEASURES ARE IN PLACE. CALL LIGHT WITHIN REACH.
--- NOTE | 2018-07-10 01:30 | NUR ---
PATIENT IS ASLEEP. NO S/S OF DISTRESS NOTED. SAFETY MEASURES ARE IN PLACE. CALL LIGHT IS WITHIN REACH.
[2018-07-10] MEDS: ALBUTEROL 0.083% 2.5 MG/3 ML NEBU INH SCH ×4 (01:39→19:53)
--- NOTE | 2018-07-10 01:48 | NUR ---
SCHEDULED BREATHING TREATMENT ADMINISTERED. TOLERATED WELL WITHOUT INCIDENT. NO RESPIRATORY DISTRESS NOTED. WILL CONTINUE TO MONITOR.
--- NOTE | 2018-07-10 03:00 | NUR ---
PATIENT IS SLEEPING NO DISTRESS NOTED. CALL LIGHT WITHIN REACH.
[2018-07-10] MEDS: BLOOD GLUCOSE MONITORING 1 DEV DEV FS SCH ×4 (05:29→20:47)
[2018-07-10] MEDS: LEVOTHYROXINE 0.088 MG TAB PO SCH (05:33)
--- NOTE | 2018-07-10 05:36 | NUR ---
SCHEDULED MEDICATION GIVEN PATIENT TOLERATED WELL. BLOOD GLUCOSE 152. WILL HOLD INSULIN D/T PTS BLOOD SUGAR DROPPED ON 07/09 WAS 32. WILL CONTINUE TO MONITOR.
[2018-07-10 06:28] LABS: BASOPHILS % (AUTO) 0.7 % (0.0-2.0); EOSINOPHILS # (AUTO) 0.2 K/uL (0-0.4); EOSINOPHILS % (AUTO) 4.5 % (0.0-4.0); HEMATOCRIT 21.5 % (36-52); HEMOGLOBIN 7.4 g/dL (12.0-18.0); LYMPHOCYTES # (AUTO) 1.3 K/uL (2.0-11.5); LYMPHOCYTES % (AUTO) 24.9 % (20.5-51.1); MEAN CORPUSCULAR HEMOGLOBIN 34 pg (27-31); MEAN CORPUSCULAR HGB CONC 34 g/dL (33-37); MEAN CORPUSCULAR VOLUME 98.6 fL (80-94); MONOCYTES # (AUTO) 0.6 K/uL (0.8-1.0); MONOCYTES % (AUTO) 10.7 % (1.7-9.3); NEUTROPHILS # (AUTO) 3.2 K/uL (1.8-7.7); NEUTROPHILS % (AUTO) 59.2 % (42.2-75.2); PLATELET COUNT (AUTO) 409 K/uL (140-450); RED BLOOD CELL COUNT(AUTO) 2.18 MIL/uL (4.20-6.10); RED CELL DISTRIBUTION WIDTH 13.8 % (11.6-13.7); WHITE BLOOD COUNT (AUTO) 5.3 K/uL (4.8-10.8)
[2018-07-10 06:44] LABS: ALBUMIN 2.1 g/dL (3.4-5.0); ANION GAP 8.8 (8-16); CARBON DIOXIDE 32.3 mmol/L (21-32); CREATININE 1.8 mg/dL (0.7-1.3); POTASSIUM 4.1 mmol/L (3.5-5.1); TOTAL BILIRUBIN 0.4 mg/dL (0.0-1.0)
--- NOTE | 2018-07-10 07:15 | NUR ---
GAVE BEDSIDE REPORT TO DAY SHIFT RN. PT ENDORSED IN STABLE CONDITION.
[2018-07-10 08:00] VITALS: BP 120/48
[2018-07-10] MEDS: TAMSULOSIN 0.4 MG CAP PO SCH (08:30)
[2018-07-10] MEDS: ATORVASTATIN 20 MG TAB PO SCH (09:48)
[2018-07-10] MEDS: BENAZEPRIL 10 MG TAB PO SCH (09:48)
[2018-07-10] MEDS: FINASTERIDE 5 MG TAB PO SCH (09:48)
[2018-07-10] MEDS: FUROSEMIDE 40 MG/4 ML VIAL IVP SCH (09:48)
[2018-07-10] MEDS: POTASSIUM CHLORIDE 10 MEQ TABER PO SCH (09:48)
[2018-07-10] MEDS: HYDROXYCHLOROQUINE 200 MG TAB PO SCH ×2 (09:48→20:40)
--- NOTE | 2018-07-10 09:49 | NUR ---
ADMINISTERED MEDS TO PT ORDERED. TOLERATED WELL. PT ASKING IF HE CAN GET LANTUS, INFORMED THAT LANTUS HAS BEEN DC BY MD AT THIS TIME. PT ON SLIDING SCALE. INFORMED HIM THAT WILL TALK TO MD WHEN HE IS IN HOSPITAL TODAY AND LET HIM KNOW PTS CONCERN REGARDING LANTUS. PT STATES HE TAKES LANTUS EVERY DAY.
--- NOTE | 2018-07-10 10:30 | NUR ---
INFORMED DR. MARSH REGARDING PT CONCERN OF HIS LANTUS. PER , PT CAN GET THE 8 UNITS OF LANTUS IF PTS BS IS MORE THAN 200.
--- NOTE | 2018-07-10 10:41 | NUR ---
DC PLANNING: CM SPOKE WITH DIEUDONNE DALAL ( [facility] ) @ [phone] REGARDING DC PLANNING. DIEUDONNE STATED THEY DO NOT WANT PATIENT TO BE RETURNING BACK TO [facility]. THEY HAVE ARRANGED ANOTHER PLACEMENT FOR PATIENT AT [facility] [place] [facility]. PER DIEUDONNE, [facility] WILL WIRELESS ENGINEER PATIENT UPON DISCHARGE AND WAS AGREEABLE TO THE NEW PLACEMENT. CM ATTEMPTED TO CONTACT SAROJ JERMAINIBETH ( TECHNICAL SUPPORT 1 SOFTWARE ENGINEER OF [facility]) @ P . HOWEVER, WAS UNAVAILABLE. CM LEFT VOICE MESSAGE AND CALL BACK NUMBER. CM ALSO ATTEMPTED TO CONTACT PATIENT'S SISTER ( LESLIE GRAVES) @ P . HOWEVER, WAS UNAVAILABLE. CM LEFT A VOICE MESSAGE AND CALL BACK NUMBER. CM TO FOLLOW UP.
[2018-07-10] MEDS ORDERED: FURO-570 PO (11:44)
[2018-07-10] MEDS: INSULIN LISPRO SLIDING SCALE 100 UNITS/ML VIAL SUBQ PRN ×3 (12:34→21:03)
[2018-07-10] MEDS ORDERED: INSULIN LANTUS 100 UNITS/ML 10 ML VIAL SUBQ SCH (13:00)
--- NOTE | 2018-07-10 13:32 | NUR ---
BEAU SPOKE WITH SAROJ SOLO ( RAMPMAN @ [facility]) @ AND INFORM HER THAT PATIENT IS DISCHARGE TODAY. SAROJ STATED THAT SHE IS NOT READY TO ACCEPT PATIENT TODAY. SAROJ STATED SHE WILL BE ABLE TO ACCEPT PATIENT TOMORROW AND GRAVES REGISTRATION SPECIALIST PATIENT TOMORROW AT 11AM.
[2018-07-10] MEDS: ALBUMIN HUMAN 25% 100 ML IV SCH ×2 (13:36→20:40)
--- NOTE | 2018-07-10 13:47 | NUR ---
ADMINISTERED MEDS TO PT ORDERED. PT TOLERATED WELL. ADMINISTERED LANTUS 8 UNITS ORDERED. PT BS 304. WILL CONTINUE TO MONITOR PT.
--- NOTE | 2018-07-10 15:53 | NUR ---
BEAU spoke with Patient's sister ( Pilar Reed) @ regarding patient will be picked up by Rima Patel (Air Cargo Specialist of [facility]) @ [place] Address is [address] [place] [id number]. Patient's sister has concerns with patient's previous [facility] ( [facility]) regarding the care patient at the facility. CM met with patient and ask regarding his issues with [facility]. Patient stated he has no issues with safety but at times he feels uncomfortable. Patient stated " I Like the Staff at the place, its just they have nursing issues. BEAU contacted Pilarkoffi Estrada ( Telecommunications Cable Jointer at [facility] ) @ regarding the complain. Pilar stated they have addressed patient's health issue, they have sent patient to be seen by MD 4 days prior patient being admitted to the hospital. MD has stated patient's TSH level was elevated. Patient has been prescribed with synthroid. Patient continue to participate with his Day care program. When they noticed patient was getting weak, they sent patient to the ER to be evaluated. Pilar stated they have also filed with the department of health regarding hospitalization. Addendum: 07/12/18 at 1449 by Elizabeth Toth CM LATE ENTRY FOR 07/10/2018 PRIOR TO CALLING THE PREVIOUS ICF ( [facility]), BEAU HAS CONSULTED DIRECTOR OF CASE MANAGEMENT (JUANITA) REGARDING THE CASE AND WAS ADVISED TO CALL AND NOTIFY PREVIOUS ICF REGARDING FAMILY'S CONCERN.
[2018-07-10 16:00] VITALS: BP 129/72
--- NOTE | 2018-07-10 16:30 | NUR ---
CHECKED ON PT. REPOSITIONED THE PT. VS STABLE, BS 348, WILL ADMINISTER INSULIN PER SLIDING SCALE. PT STABLE AT THIS TIME. DENIES ANY PAIN OR DISCOMFORT. CALL LIGHT WITHIN PT'S REACH. WILL CONTINUE TO MONITOR PT.
--- NOTE | 2018-07-10 17:10 | NUR ---
ADMINISTERED HUMALOG PER SLIDING SCALE. NO DISTRESS NOTED. ALL SAFETY MEASURE IN PLACE. WILL CONTINUE TO MONITOR PT.
--- NOTE | 2018-07-10 19:10 | NUR ---
ENDORSED PT TO PM NURSE AT BEDSIDE. PT IN STABLE CONDITION.
--- NOTE | 2018-07-10 19:20 | NUR ---
RECEIVED BEDSIDE REPORT FROM DAY SHIFT NURSE. PATIENT IS AWAKE, ALERT, AND COOPERATIVE. RESPIRATION EVEN UNLABORED ON ROOM AIR. SKIN IS WARM AND DRY. IV PATENT AND INTACT. SALINE LOCK FOR NOW PER ORDER. BLE AND SCROTUM EDEMA NOTED. NOEL CATHETER NOTED DRAINING YELLOW URINE. PATIENT DENIES PAIN. PLAN OF CARE WAS DISCUSSED. ALL SAFETY MEASURES IN PLACE. BED IN LOW POSITION. CALL LIGHT WITHIN REACH. WILL CONTINUE TO MONITOR.
--- NOTE | 2018-07-10 20:00 | NUR ---
INITIAL ASSESSMENT DONE. VITALS WERE TAKEN. NO DISTRESS NOTED. WILL CONTINUE TO MONITOR
--- NOTE | 2018-07-10 20:03 | NUR ---
RECEIVED PATIENT ON ROOM AIR, PULSE OX SAT 92%. SCHEDULED BREATHING TREATMENT ADMINISTERED. TOLERATED TX WELL. NO ADVERSE SIDE EFFECTS. PATIENT DEMONSTRATES STRONG COUGH EFFORT. NO RESPIRATORY DISTRESS NOTED AT THIS TIME. WILL CONTINUE TO MONITOR.
--- NOTE | 2018-07-10 21:00 | NUR ---
ALL SCHEDULED MEDS WERE GIVEN PER ORDER AND TOLERATED THEM WELL. NO ASE NOTED. WILL CONTINUE TO MONITOR
--- NOTE | 2018-07-10 23:00 | NUR ---
PATIENT IN BED SLEEPING COMFORTABLY NO DISTRESS NOTED. WILL CONTINUE TO MONITOR
--- NOTE | 2018-07-10 23:30 | NUR ---
PROVIDED GOOD PERICARE AND NOEL CATH CARE.
[2018-07-11] VITALS: BP 127/66
--- NOTE | 2018-07-11 | NUR ---
VITALS WERE TAKEN. PATIENT IS IN STABLE CONDITION. NO DISTRESS NOTED. WILL CONTINUE TO MONITOR
[2018-07-11] MEDS: ALBUTEROL 0.083% 2.5 MG/3 ML NEBU INH SCH ×3 (01:00→13:30)
--- NOTE | 2018-07-11 02:00 | NUR ---
CHECKED PATIENT. PATIENT SLEEPING COMFORTABLY RESPIRATION EVEN UNLABORED ON ROOM AIR. NO DISTRESS NOTED. WILL CONTINUE TO MONITOR
--- NOTE | 2018-07-11 04:00 | NUR ---
PATIENT SLEEPING RESPIRATION EVEN UNLABORED ON ROOM AIR. NO DISTRESS NOTED. WILL CONTINUE TO MONITOR.
[2018-07-11] MEDS: ALBUMIN HUMAN 25% 100 ML IV SCH (04:31)
[2018-07-11] MEDS: INSULIN LISPRO SLIDING SCALE 100 UNITS/ML VIAL SUBQ PRN ×2 (06:06→12:00)
[2018-07-11] MEDS: BLOOD GLUCOSE MONITORING 1 DEV DEV FS SCH ×3 (06:08→16:30)
[2018-07-11 06:11] LABS: ALBUMIN 2.6 g/dL (3.4-5.0); ANION GAP 9.3 (8-16); CARBON DIOXIDE 31.5 mmol/L (21-32); CREATININE 1.7 mg/dL (0.7-1.3); POTASSIUM 3.8 mmol/L (3.5-5.1); TOTAL BILIRUBIN 0.4 mg/dL (0.0-1.0)
[2018-07-11 06:30] LABS: BASOPHILS % (AUTO) 0.6 % (0.0-2.0); EOSINOPHILS # (AUTO) 0.2 K/uL (0-0.4); EOSINOPHILS % (AUTO) 2.8 % (0.0-4.0); LYMPHOCYTES # (AUTO) 1.4 K/uL (2.0-11.5); LYMPHOCYTES % (AUTO) 21.5 % (20.5-51.1); MEAN CORPUSCULAR HEMOGLOBIN 34 pg (27-31); MEAN CORPUSCULAR HGB CONC 34 g/dL (33-37); MEAN CORPUSCULAR VOLUME 98.2 fL (80-94); MONOCYTES # (AUTO) 0.6 K/uL (0.8-1.0); MONOCYTES % (AUTO) 8.8 % (1.7-9.3); NEUTROPHILS # (AUTO) 4.2 K/uL (1.8-7.7); NEUTROPHILS % (AUTO) 66.3 % (42.2-75.2); PLATELET COUNT (AUTO) 402 K/uL (140-450); RED BLOOD CELL COUNT(AUTO) 1.99 MIL/uL (4.20-6.10); RED CELL DISTRIBUTION WIDTH 13.5 % (11.6-13.7); WHITE BLOOD COUNT (AUTO) 6.3 K/uL (4.8-10.8)
[2018-07-11 06:38] LABS: HEMATOCRIT 19.5 % (36-52); HEMOGLOBIN 6.7 g/dL (12.0-18.0)
--- NOTE | 2018-07-11 06:40 | NUR ---
PAGED DR. LU FOR CRITICAL LAB RESULT. AWAITING FOR CALL BACK.
[2018-07-11] MEDS: LEVOTHYROXINE 0.088 MG TAB PO SCH (06:58)
--- NOTE | 2018-07-11 07:27 | NUR ---
ENDORSED PATIENT TO DAY SHIFT NURSE. PATIENT IS IN STABLE CONDITION.
--- NOTE | 2018-07-11 07:28 | NUR ---
RECEIVED BEDSIDE REPORT FROM NIGHT NURSE. PT IS AOX2 ALERT TO NAME AND LOCATION WITH NO OBVIOUS SIGNS OF DISTRESS WITH BREATHING SYMMETRICAL AND LUNG SOUNDS CLEAR AT THIS TIME. EDEMA NON PITTING PRESENT TO BLE WITH A LEFT WRIST IV SITE ASYMPTOMATIC AND PATENT SALINE LOCKED. ALL SAFETY MEASURES ARE IN PLACE AT THIS TIME, WITH CALL LIGHT IN PLACE. SKIN IS INTACT
--- NOTE | 2018-07-11 07:38 | NUR ---
CONTACTED DR. MARSH AND NOTIFIED TO CRITICAL LAB VALUES REGARDING HEMOGLOBIN AND HEMATOCRIT. INSTRUCTIONS AT THIS TIME IS TO ORDER A FOLLOW UP CBC TO RETEST.
[2018-07-11 08:00] VITALS: BP 116/67
[2018-07-11] MEDS ORDERED: INSULIN LANTUS 100 UNITS/ML 10 ML VIAL SUBQ SCH (09:00)
[2018-07-11 09:01] LABS: BASOPHILS % (AUTO) 0.4 % (0.0-2.0); EOSINOPHILS # (AUTO) 0.2 K/uL (0-0.4); RED CELL DISTRIBUTION WIDTH 13.6 % (11.6-13.7); WHITE BLOOD COUNT (AUTO) 6.8 K/uL (4.8-10.8)
[2018-07-11 09:13] LABS: EOSINOPHILS % (AUTO) 2.9 % (0.0-4.0); LYMPHOCYTES # (AUTO) 1.5 K/uL (2.0-11.5); LYMPHOCYTES % (AUTO) 21.4 % (20.5-51.1); MEAN CORPUSCULAR HEMOGLOBIN 34 pg (27-31); MEAN CORPUSCULAR HGB CONC 35 g/dL (33-37); MEAN CORPUSCULAR VOLUME 98.6 fL (80-94); MONOCYTES # (AUTO) 0.7 K/uL (0.8-1.0); MONOCYTES % (AUTO) 10.5 % (1.7-9.3); NEUTROPHILS # (AUTO) 4.4 K/uL (1.8-7.7); NEUTROPHILS % (AUTO) 64.8 % (42.2-75.2); PLATELET COUNT (AUTO) 393 K/uL (140-450)
--- NOTE | 2018-07-11 09:13 | NUR ---
LATE ENTRY : 07/10/2018 BEAU SPOKE WITH SAROJ SOLO ( PHYSICIAN RELATIONS MANAGER @ [facility]) @ AND INFORMED HER REGARDING MD ORDERED PATIENT TO HAVE HOME HEALTH FOR PHYSICAL THERAPY. PER SAROJ, SHE HAS HER OWN HOME HEALTH CALLED [facility] IN [place], [place]. SAROJ WILL ARRANGE HOME HEALTH PT WITH [facility]. BEAU EXPLAINED THAT [facility] IS NOT CONTRACTED WITH PATIENT'S CURRENT INSURANCE. HOWEVER, SAROJ STATED SHE WILL TAKE CARE OF THE HOME HEALTH. CM NOTIFIED CIRCULATION DIRECTOR @ [facility] ( [facility]). [facility] STATED IT IS OKAY.
[2018-07-11] MEDS: POTASSIUM CHLORIDE 10 MEQ TABER PO SCH (09:17)
[2018-07-11] MEDS: TAMSULOSIN 0.4 MG CAP PO SCH (09:18)
[2018-07-11] MEDS: ATORVASTATIN 20 MG TAB PO SCH (09:18)
[2018-07-11] MEDS: FUROSEMIDE 40 MG/4 ML VIAL IVP SCH (09:18)
[2018-07-11] MEDS: HYDROXYCHLOROQUINE 200 MG TAB PO SCH (09:18)
[2018-07-11] MEDS: BENAZEPRIL 10 MG TAB PO SCH (09:18)
[2018-07-11] MEDS: FINASTERIDE 5 MG TAB PO SCH (09:18)
[2018-07-11 09:22] LABS: HEMATOCRIT 21.1 % (36-52); HEMOGLOBIN 7.3 g/dL (12.0-18.0)
--- NOTE | 2018-07-11 09:29 | NUR ---
ADMINISTERED MEDICATIONS. PT IS SITTING UP IN BED WITH NO OBVIOUS SIGNS OF DISTRESS. ALSO SPOKE TO PATIENTS FAMILY (SISTER) AT BEDSIDE CONCERNING IF HE IS DISCHARGING TODAY AND REQUESTING TO SPEAK WITH DR MARSH WHEN HE COMES ONTO THE FLOOR. INFORMED HER I WOULD DO SO.
--- NOTE | 2018-07-11 10:27 | NUR ---
SPOKE WITH [employer] TO NOTIFY DR MARHS AND CONTACT ME SOON POSSIBLE REGARDING PENDING DISCHARGE ORDER, DISCONTINUING NOEL, AND TO NOTIFY THAT HEMOGLOBIN AND HEMATOCRIT VALUES WERE NOT CRITICAL LOW ON FOLLOW UP TESTING. SHE STATES SHE WILL HAVE HIM NOTIFY HIM SOON POSSIBLE.
--- NOTE | 2018-07-11 10:38 | NUR ---
NOTIFIED DR MARSH REGARDING PENDING DISCHARGE ORDER, DISCONTINUING NOEL, AND THAT HEMOGLOBIN AND HEMATOCRIT VALUES WERE NOT CRITICAL LOW ON FOLLOW UP TESTING. MD STATES TO ORDER TO DISCHARGE AND DISCHARGE NOEL CATHETER AT THIS TIME.
--- NOTE | 2018-07-11 10:40 | NUR ---
PT'S FAMILY (SISTER) AT BEDSIDE SPEAKING WITH DR MARSH.
--- NOTE | 2018-07-11 10:48 | NUR ---
Ferguson cath discontinued at this time, 1350ml clear yellow urine present in drainage bag. No signs of bladder distention. Pt denies any discomfort at this time.
[2018-07-11] MEDS ORDERED: POTA20TE92 PO (10:55)
[2018-07-11] MEDS ORDERED: POTA10TE30 PO (10:58)
--- NOTE | 2018-07-11 11:03 | NUR ---
Spoke to Rima Patel from [facility]. Per Rima, she has arranged home health with [facility] to see pt & will transport pt around 1400 today.
--- NOTE | 2018-07-11 11:06 | NUR ---
FOLLOW UP APPOINTMENT WITH PCP: MD: Dr. Adam Monzon Address: [address] [place] [id number] Appointment: 07/18/2018 @ 1:15PM
--- NOTE | 2018-07-11 11:09 | NUR ---
DC PLANNING: CM SPOKE WITH SAROJ JERMAINIBETH [phone] REGARDING DC. SAROJ STATED SHE WANTED TO MAKE SURE PATIENT IS ABLE TO VOID. WILL HAVE TO WAIT 4 HOURS AFTER NOEL CATH DC. SAROJ STATED IF PATIENT WILL NOT BE ABLE TO VOID AND WILL REQUIRE NOEL CATH, THEY ARE ABLE TO HANDLE NOEL CATHETER CARE AT [facility].
--- NOTE | 2018-07-11 11:28 | NUR ---
CM SPOKE WITH PATIENT'S SISTER ( LESLIE ) @ BEDSIDE. PATIENT'S SISTER WAS VERY UPSET ABOUT THE PREVIOUS ICF ( [facility]) AND SUSPECT PATIENT BEING NEGLECTING AT THE PREVIOUS ICF. PER LESLIE, THE FACILITY HAS NOT ADDRESS PATIENT'S MEDICAL NEEDS. PATIENT WAS VERY SWOLLEN UPON ADMISSION TO THE ER. THE FACILITY WOULD TELL HER BROTHER THAT " DON'T PEE IN THE BED, YOU ARE DOING IT ON PURPOSE". CM CONSULTED DR. MARSH REGARDING FAMILY'S CONCERN. STATED PATIENT WAS VERY EDEMATOUS UPON ADMISSION AND WAS NOT ON LASIX NOT UNTIL HOSPITALIZATION. PATIENT HAD TOO MUCH FLUID RETENTION THAT ABOUT 10 LITER OF FLUID WAS DIURESE IN THE HOSPITAL. CM CONSULTED [facility] @ [phone] AND SPOKE WITH ROSLYN. PER ROSLYN, THIS CASE IS MORE OF NURSING CARE AND ADVICE CM TO CALL [facility] @ P . CM ATTEMPTED TO CONTACT [facility] TO CONSULT REGARDING THIS CASE, HOWEVER, WAS UNAVAILABLE. CM LEFT A MESSAGE AND CALL BACK NUMBER. AWAITING FOR CALL BACK.
--- NOTE | 2018-07-11 14:06 | NUR ---
PT RESTING IN BED WITH NO OBVIOUS SIGNS OF DISTRESS. BREATHING SYMMETRICAL UNLABORED.
[2018-07-11 16:00] VITALS: BP 122/70
--- NOTE | 2018-07-11 16:17 | NUR ---
CONTACTED SAROJ AT [phone] AND LEFT A VOICEMAIL INQUIRING ABOUT PATIENT DISCHARGE PENDING. PT IS SITTING UP IN BED AT THIS TIME WITH NO OBVIOUS SIGNS OF DISTRESS.
--- NOTE | 2018-07-11 16:33 | NUR ---
PT RESTING IN BED WITH NO OBVIOUS SIGNS OF DISTRESS AND NO REQUESTS AT THIS TIME.
--- NOTE | 2018-07-11 17:30 | NUR ---
PT DISCHARGED VIA WHEELCHAIR AND TRANSPORTED BY [facility]. PT FAMILY (LESLIE) ACCOMPANYING PT. PERSONAL BELONGINGS WITH PT. VERBAL AND WRITTEN DISCHARGE INFORMATION PROVIDED TO PATIENT. LEFT HAND IV REMOVED CATHETER INTACT UPON REMOVAL.
[2018-07-12] MEDS ORDERED: INSULIN LANTUS 100 UNITS/ML 10 ML VIAL SUBQ SCH (09:00)
--- NOTE | 2018-07-12 10:32 | NUR ---
RECEIVED A CALL FROM ZBIGNIEW WOOD ( CLEANING SUPERVISOR @ [facility] @ P Regarding patient's and patient's family complain of the previous ICF ( [facility]). Zbigniew instructed CM to file a SOC 341 Form and faxed to [facility] @ [phone] and to [place] @ F .
== END 2018-07-11 17:30 | DRG 291 ==
LOC: MED 13:07 → MTU 19:31
PROVIDERS: ADMIT Internal Medicine Pulmonary Disease; ATTEND Internal Medicine Pulmonary Disease
DX: I11.0 Hypertensive heart disease with heart failure (principal); J96.01 Acute respiratory failure with hypoxia; E87.1 Hypo-osmolality and hyponatremia; E44.0 Moderate protein-calorie malnutrition; I50.23 Acute on chronic systolic (congestive) heart failure; E03.9 Hypothyroidism, unspecified; E83.42 Hypomagnesemia; G80.9 Cerebral palsy, unspecified; E11.9 Type 2 diabetes mellitus without complications; Z79.4 Long term (current) use of insulin; Z79.899 Other long term (current) drug therapy; Z99.3 Dependence on wheelchair; Z68.31 Body mass index [BMI] 31.0-31.9, adult
CPT/HCPCS: 36415; 36600; 71045; 80053; 81003; 82803; 82948; 83605; 83735; 83880; 84484; 85025; 85379; 85610; 85730; 87040; 87081; 87086; 93005; 94640; 96365; 96366; 96367; 96375; 99285; J1650; J1815; J1940; J1956; J2543; J2930; J3475; J7030; J7060; J7613; J7620; P9046; Q0092